=== PATIENT | female | born 1930 | race Caucasian/White ===

== ENCOUNTER 2016-10-20 13:39 | Inpatient (IN) | payer OTHER, BC ==
[~2016-10-20] VITALS: Ht 152.4 cm; Wt 65.9 kg
--- NOTE | ~2016-10-20 | EKG ---
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1930 Requested By: Leatha Gaitan Order Number: [id number] MD: Vinay Medina Measurements Intervals [place] Rate: 88 P: [place]: QRS: 75 QRSD: 73 T: 48 QT: 353 QTc: 427 Interpretive Statements Accelerated junctional rhythm Compared to ECG 10/13/2009 19:42:29 Accelerated junctional rhythm now present PSVT is no longer present Electronically Signed On 10-21-2016 8:49:53 CDT by Vinay Medina [email or web address] <ELECTRONICALLY SIGNED> By: Vinay Medina MD, [facility] 10/21/16 0849 1410 1410 Vinay Medina MD, [facility] /EPI
--- NOTE | ~2016-10-20 | 2DMMODE ---
[facility] [address] [place] [address] 2 D/M-MODE ECHOCARDIOGRAM Name: CHANO COMBS Room #: 463-P [facility] IN M.R.#: [id number] Admission: 10/20/16 Attend Phys: Justin Mccallum, Discharge: Date of : 30 Date of Service: 10/22/16 1404 Report #: [id number] THIS REPORT FOR: //name// APPROVED REPORT Study performed: 10/22/2016 12:38:34 EXAM: Comprehensive 2D, Doppler, and color-flow Echocardiogram Patient Location: Bedside Room #: 463 Status: routine Other Information Study Quality: Adequate Indications Atrial Fibrillation 2D Dimensions RVDd: 32.91 mm LVEF(%): 50.60 (>50%) IVSd: 11.01 (7-11mm) LVOT Diam: 18.29 (18-24mm) LVDd: 32.59 mm PWd: 11.23 (7-11mm) Ascending Ao: 29.56 (22-36mm) LVDs: 24.46 (25-40mm) Aortic Root: 28.02 mm IVC: 2.00 mm Yang's LVEF: 50.60 % Volumes Left Atrial Volume (Systole) Single Plane 4CH: 36.91 mL Single Plane 2CH: 71.81 mL LA ESV Index: 35.00 mL/m2 Aortic Valve AoV Peak Bruno.: 1.46 m/s AO Peak Gr.: 8.62 mmHg LVOT Max P.35 mmHg LVOT Max V: 1.15 m/s APRIL Vmax: 2.08 cm2 Mitral Valve E/A Ratio: 2.6 MV Decel. Time: 272.59 ms MV E Max Bruno.: 1.25 m/s MV A Bruno.: 0.49 m/s MV PHT: 79.05 ms IVRT: 55.36 ms [facility] [place] [address] 2 D/M-MODE ECHOCARDIOGRAM Name: CHANO COMBS Room #: 463-P [facility] IN M.R.#: [id number] Admission: 10/20/16 Attend Phys: Justin Mccallum, Discharge: Date of : 30 Date of Service: 10/22/16 1404 Report #: [id number] Pulmonary Valve PV Peak Bruno.: 1.21 m/s PV Peak Gr.: 5.83 mmHg Tricuspid Valve TR Peak Bruno.: 2.82 m/s RAP Estimate: 5.00 mmHg TR Peak Gr.: 31.79 mmHg PA Pressure: 37.00 mmHg Left Ventricle The left ventricle is normal size. There is normal LV segmental wall motion. There is normal left ventricular wall thickness. The left ventricular systolic function is normal. The left ventricular ejection fraction is within the normal range. LVEF is 55-60%. This study is not technically sufficient to allow evaluation of the LV diastolic function due to atrial fibrillation. Right Ventricle The right ventricle is normal size. The right ventricular systolic function is normal. Atria The left atrium size is normal. The right atrium size is normal. Aortic Valve The aortic valve is normal in structure. Mild aortic regurgitation. There is no aortic valvular stenosis. Mitral Valve The mitral valve is normal in structure. Mild mitral regurgitation. No evidence of mitral valve stenosis. Tricuspid Valve The tricuspid valve is normal in structure. There is trace to mild tricuspid regurgitation. The right atrial pressure is estimated at 5 mmHg. There is mild pulmonary hypertension with an estimated PAP of 37 mmHg. Pulmonic Valve The pulmonary valve is normal in structure. There is no pulmonic valvular regurgitation. Great Vessels The aortic root is normal in size. The ascending aorta is normal in size. IVC is normal in size and collapses >50% with [facility] [address] [place] [address] 2 D/M-MODE ECHOCARDIOGRAM Name: CHANO COMBS Room #: 463-P [facility] IN M.R.#: [id number] Admission: 10/20/16 Attend Phys: Justin Mccallum, Discharge: Date of : 30 Date of Service: 10/22/16 1404 Report #: [id number] inspiration. Pericardium There is no pericardial effusion. <Conclusion> The left ventricle is normal size. LVEF is 55-60%. The aortic valve is normal in structure. Mild aortic regurgitation. The mitral valve is normal in structure. Mild mitral regurgitation. The tricuspid valve is normal in structure. There is trace to mild tricuspid regurgitation. The right atrial pressure is estimated at 5 mmHg. There is mild pulmonary hypertension with an estimated PAP of 37 mmHg. The pulmonary valve is normal in structure. <ELECTRONICALLY SIGNED> By: Dipak Barton MD 10/22/16 1404 1404 1404 Dipak Barton MD /INF
--- NOTE | ~2016-10-20 | HC ---
[facility] [place] [address] CONSULTATION Name: CHANO COMBS Room #: 463-P ADM IN M.R.#: [id number] Admission: 10/20/16 Attend Phys: Justin Mccallum MD Discharge: Date of : 30 Report #: [id number] THIS REPORT FOR: //name// CC: Justin Claros DATE OF SERVICE: 10/24/2016 REASON FOR CONSULTATION: Lung mass on CT. IMPRESSION: 1. Irregular parenchymal infiltrates. 2. Anterior pleural based right lung lesion. 3. Bilateral effusions. 4. Small mediastinal nodes, largest precarinal node 13 x 8, subcarinal node 15 x 9. 5. Sepsis. 6. Healthcare-associated pneumonia. 7. . 8. Atrial fibrillation. 9. Hypertension. 10. Hyperlipidemia. PLAN: Chest x-ray was done showing fluctuating pleural effusions and infiltrates. Suggest continue current antibiotics, aerosol therapy. Could consider speech therapy with video swallow; however, discussed with daughter and does not feel they would wish a PEG at this time, but will ask primary to discuss further with them. Further therapy per Cardiology. We will continue current pulmonary toilet available as needed. HISTORY OF PRESENT ILLNESS: An 86-year-old female admitted with atrial fibrillation, cough, wheeze, some shortness of breath. PAST MEDICAL HISTORY: ALLERGIES: BENADRYL and IBUPROFEN. SOCIAL HISTORY: Negative tobacco or ETOH. FAMILY HISTORY: Noncontributory. SURGERIES: Include nasal cauterization, colonoscopy, carpal tunnel. REVIEW OF SYSTEMS: Include hypertension, hyperlipidemia, dementia, shingles, right leg pain, arthritis, cough, shortness of breath, leg pain. PHYSICAL EXAMINATION: [facility] [address] [place] [address] CONSULTATION Name: CHANO COMBS Room #: 463-P [facility] IN .R.#: [id number] Admission: 10/20/16 Attend Phys: Justin Mccallum MD Discharge: Date of : 30 Report #: [id number] VITAL SIGNS: Temperature 98.1, pulse 74, respirations 18, BP 134/51. EYES: Negative icterus. NECK: Negative JVD. LUNGS: Coarse bilateral. HEART: Irregular. ABDOMEN: Bowel sounds present. EXTREMITIES: Showed no cyanosis. Positive edema. Laboratory and X-ray were reviewed. By: [id number] Landry Granados MD /nt
--- NOTE | ~2016-10-20 | EKG ---
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1930 Requested By: Leatha Gaitan Order Number: [id number] MD: Vinay Medina Measurements Intervals [place] Rate: 195 P: [place]: QRS: 84 QRSD: 92 T: -73 QT: 233 QTc: 420 Interpretive Statements Supraventricular tachycardia Probable anterior infarct, old Repolarization abnormality, prob rate related Baseline wander in lead(s) I,V5 Compared to ECG 10/13/2009 19:42:29 Sinus rhythm has replaced PSVT ST and T wave abnormalities no longer present Electronically Signed On 10-21-2016 7:44:13 CDT by Vinay Medina [email or web address] <ELECTRONICALLY SIGNED> By: Vinay Medina MD, FAC 10/21/16 0744 1346 1346 Vinay Medina MD, FAC /EPI
[~2016-10-20 13:39] MED LIST: ADULT LOW DOSE81 MG PO; ALEVE220 MG PO; ASPIRIN325 PO; CITRACAL + BON1 EACH PO; CITRACAL PLUS1 EACH PO; CLONIDINE PO; DILTIAZEM ER180 M1 PO; FISHOIL PO; FOSAMAX 70 MG T70 M1 PO; HCTZ PO; MICARDIS40 MG PO; OCUVITE TABLET1 EAC1 PO; VITAMIN E400 UNIT PO; ZOCOR 20 MG TAB20 M1 PO
[2016-10-20 13:55] VITALS: BP 152/81
[2016-10-20 14:14] LABS: ABSOLUTE NEUTROPHILS 6.3 thou/uL (1.4-8.2); BASOPHILS 0.4 % (0.0-2.0); HEMATOCRIT 32.7 % (37.0-47.0); HEMOGLOBIN 11.3 gm/dL (12.0-15.0); LYMPHOCYTES 10.7 % (24.0-44.0); MCH 29.7 pg (26.0-34.0); MCHC 34.7 g/dL (28.0-37.0); MCV 85.6 fL (80.0-100.0); PLATELET COUNT 370 thou/uL (150-400); POLYS 79.9 % (36.0-66.0); RBC 3.81 mil/uL (4.20-5.00); RDW 15.4 % (10.5-14.5); WBC 7.9 thou/uL (4.0-11.0)
[2016-10-20 14:18] LABS: MANUAL DIFF NO
[2016-10-20 14:20] LABS: CALCIUM 8.9 mg/dL (8.5-10.1); POTASSIUM 4.1 mmol/L (3.5-5.1)
[2016-10-20 14:28] LABS: URINE BILIRUBIN NEGATIVE (Negative); URINE BLOOD TRACE (Negative); URINE GLUCOSE-RANDOM* NEGATIVE (Negative); URINE KETONES TRACE (Negative); URINE NITRITE NEGATIVE (Negative); URINE PROTEIN (DIPSTICK) 2+ (Negative); URINE UROBILINOGEN 0.2 E.U./dl (0.2-1.0)
[2016-10-20 14:31] LABS: URINE COLOR YELLOW
[2016-10-20 14:37] LABS: ABG SAMPLE TYPE ARTERIAL; BE(vivo) -0.6 mmol/L (-2 to +3); HCO3 22.6 mmol/L (22.0-26.0); LACTATE 2.73 mmol/L (0.5-2.0); O2(CT) 16.1 mL/dL (15.0-23.0); O2Hb 98.8 % (92.0-98.0); PCO2 32.3 mmHg (35.0-45.0); PO2 217.8 mmHg (80.0-100.0); Pressure Support 6 cm H20; STICK SITE R.RADIAL; pH 7.462 (7.360-7.450); sO2 99.5 % (92.0-98.0); tCO2 23.6 mmol/L (24.0-30.0)
[2016-10-20 14:54] LABS: BACTERIA 1-9 Few /HPF (None Seen); CASTS None Seen /LPF (None Seen); SQUAMOUS 0-3 Few /LPF (0-3); URINE RBC 3-10 Few /HPF (0-2); URINE WBC None Seen /HPF (0-5)
[2016-10-20 14:55] LABS: AMORPHOUS URATES Few /LPF (None Seen)
[2016-10-20 15:30] LABS: ALBUMIN 2.8 g/dL (3.4-5.0); DIRECT BILIRUBIN 0.2 mg/dL (<0.1-0.3); TOTAL BILIRUBIN 0.9 mg/dL (<0.1-1.0); TOTAL PROTEIN 6.9 g/dL (6.4-8.2)
[2016-10-20 16:48] VITALS: BP 126/50
[2016-10-20 17:20] VITALS: BP 128/76
[2016-10-20 21:57] VITALS: BP 105/40
[2016-10-21 00:22] VITALS: BP 164/43
[2016-10-21 03:55] VITALS: BP 139/59
[2016-10-21 05:45] LABS: HEMATOCRIT 25.3 % (37.0-47.0); MCH 29.8 pg (26.0-34.0); MCV 85.2 fL (80.0-100.0); RBC 2.97 mil/uL (4.20-5.00); RDW 15.9 % (10.5-14.5); WBC 7.6 thou/uL (4.0-11.0)
[2016-10-21 05:51] LABS: HEMOGLOBIN 8.8 gm/dL (12.0-15.0)
[2016-10-21 05:59] LABS: CALCIUM 7.7 mg/dL (8.5-10.1); POTASSIUM 4.1 mmol/L (3.5-5.1)
[2016-10-21 08:53] VITALS: BP 120/49
[2016-10-21 15:49] VITALS: BP 134/52
[2016-10-21 19:29] VITALS: BP 139/60
[2016-10-21 23:40] VITALS: BP 139/81
[2016-10-22 04:10] VITALS: BP 113/64
[2016-10-22 07:52] VITALS: BP 141/67
[2016-10-22 10:57] LABS: HEMATOCRIT 29.7 % (37.0-47.0); HEMOGLOBIN 10.2 gm/dL (12.0-15.0); MCHC 34.2 g/dL (28.0-37.0); MCV 87.6 fL (80.0-100.0); RBC 3.39 mil/uL (4.20-5.00)
[2016-10-22 11:00] LABS: CALCIUM 7.9 mg/dL (8.5-10.1); CREATININE 0.9 mg/dL (0.6-1.0); POTASSIUM 3.5 mmol/L (3.5-5.1)
[2016-10-22 11:36] VITALS: BP 121/61
[2016-10-22 15:15] VITALS: BP 119/54
[2016-10-22 21:10] VITALS: BP 127/41
[2016-10-23 04:00] VITALS: BP 146/56
[2016-10-23 06:31] LABS: HEMOGLOBIN 9.4 gm/dL (12.0-15.0); MCH 29.7 pg (26.0-34.0); MCHC 34.7 g/dL (28.0-37.0); MCV 85.7 fL (80.0-100.0); RBC 3.15 mil/uL (4.20-5.00); RDW 15.7 % (10.5-14.5); WBC 10.1 thou/uL (4.0-11.0)
[2016-10-23 06:41] LABS: CALCIUM 8.1 mg/dL (8.5-10.1); CREATININE 0.9 mg/dL (0.6-1.0); POTASSIUM 3.1 mmol/L (3.5-5.1)
[2016-10-23 07:41] VITALS: BP 112/52
[2016-10-23 11:22] LABS: MAGNESIUM 1.8 mg/dL (1.8-2.4)
[2016-10-23 11:44] VITALS: BP 129/62
[2016-10-23 16:16] VITALS: BP 127/51
[2016-10-23 19:47] VITALS: BP 142/57
[2016-10-24 03:19] VITALS: BP 134/52
[2016-10-24 05:40] LABS: HEMATOCRIT 27.5 % (37.0-47.0); HEMOGLOBIN 9.4 gm/dL (12.0-15.0); MCH 29.6 pg (26.0-34.0); MCHC 34.2 g/dL (28.0-37.0); MCV 86.4 fL (80.0-100.0); RBC 3.19 mil/uL (4.20-5.00); RDW 15.5 % (10.5-14.5)
[2016-10-24 05:55] LABS: CALCIUM 8.3 mg/dL (8.5-10.1); CREATININE 0.8 mg/dL (0.6-1.0); POTASSIUM 3.6 mmol/L (3.5-5.1)
[2016-10-24 07:31] VITALS: BP 142/63
[2016-10-24 11:29] VITALS: BP 113/53
[2016-10-24 15:50] VITALS: BP 137/63
[2016-10-24 19:40] VITALS: BP 134/51
[2016-10-25 04:23] VITALS: BP 146/49
[2016-10-25 06:14] LABS: HEMATOCRIT 26.2 % (37.0-47.0); MCH 29.6 pg (26.0-34.0); MCHC 34.2 g/dL (28.0-37.0); MCV 86.4 fL (80.0-100.0); PLATELET COUNT 440 thou/uL (150-400); RBC 3.04 mil/uL (4.20-5.00); RDW 15.9 % (10.5-14.5); WBC 11.8 thou/uL (4.0-11.0)
[2016-10-25 06:23] LABS: MANUAL DIFF YES
[2016-10-25 06:24] LABS: CALCIUM 8.6 mg/dL (8.5-10.1); MAGNESIUM 1.7 mg/dL (1.8-2.4); POTASSIUM 3.7 mmol/L (3.5-5.1)
[2016-10-25 07:13] VITALS: BP 152/57
[2016-10-25 08:07] LABS: ABSOLUTE NEUTROPHILS 8.3 thou/uL (1.4-8.2); ANISOCYTOSIS SLIGHT; HYPOCHROMASIA 1+; POIKILOCYTOSIS SLIGHT; TOTAL CELL COUNT 100
[2016-10-25 11:53] VITALS: BP 136/40
[2016-10-25 15:29] VITALS: BP 147/50
[2016-10-25 19:49] VITALS: BP 191/85
[2016-10-26 05:13] VITALS: BP 144/63
[2016-10-26 06:49] LABS: HEMATOCRIT 25.9 % (37.0-47.0); HEMOGLOBIN 8.9 gm/dL (12.0-15.0); MCH 29.7 pg (26.0-34.0); MCHC 34.5 g/dL (28.0-37.0); MCV 86.1 fL (80.0-100.0); PLATELET COUNT 460 thou/uL (150-400); RDW 15.8 % (10.5-14.5); WBC 10.7 thou/uL (4.0-11.0)
[2016-10-26 06:50] LABS: MANUAL DIFF YES
[2016-10-26 07:13] LABS: CALCIUM 8.5 mg/dL (8.5-10.1); CREATININE 0.8 mg/dL (0.6-1.0); POTASSIUM 3.6 mmol/L (3.5-5.1)
[2016-10-26 08:46] VITALS: BP 133/63
[2016-10-26 10:50] LABS: ABSOLUTE NEUTROPHILS 6.5 thou/uL (1.4-8.2); ANISOCYTOSIS 1+; METAMYELOCYTES 1 %; TOTAL CELL COUNT 100
[2016-10-26 16:23] VITALS: BP 131/49
[2016-10-26 19:24] VITALS: BP 132/48
[2016-10-27 04:10] VITALS: BP 125/55
[2016-10-27 09:05] VITALS: BP 131/43
[2016-10-27 11:47] VITALS: BP 124/40
[2016-10-27] MEDS ORDERED: LEVAQUIN 500 M500 M2 PO (12:55)
[2016-10-27] MEDS ORDERED: PACERONE 200 M200 M1 PO (12:56)
== END 2016-10-27 16:21 | DRG 871 ==
LOC: ER 13:39 → 4W 15:01 → EROBS 15:01 → 4W 16:34
PROVIDERS: Emergency Medicine; Family Medicine; Internal Medicine; Registered Nurse
PROC: 5A09357 Assistance with Respiratory Ventilation, Less than 24 Consecutive Hours, Continuous Positive Airway Pressure (ICD-10-PCS; principal; 2016-10-20)
DX: A41.9 Sepsis, unspecified organism (principal); J18.9 Pneumonia, unspecified organism; J96.90 Respiratory failure, unspecified, unspecified whether with hypoxia or hypercapnia; E87.1 Hypo-osmolality and hyponatremia; I10 Essential (primary) hypertension; E78.5 Hyperlipidemia, unspecified; E78.00 Pure hypercholesterolemia, unspecified; M19.90 Unspecified osteoarthritis, unspecified site; I48.91 Unspecified atrial fibrillation; Z66 Do not resuscitate; T50.2X5A Adverse effect of carbonic-anhydrase inhibitors, benzothiadiazides and other diuretics, initial encounter; G89.29 Other chronic pain; R53.81 Other malaise; Y92.89 Other specified places as the place of occurrence of the external cause; Z88.8 Allergy status to other drugs, medicaments and biological substances; Z79.899 Other long term (current) drug therapy
CPT/HCPCS: 10045

== ENCOUNTER → 2019-06-01 | Outpatient (CLI) | payer OTHER, BC ==
[~2019-06-01] MED LIST changes: +LEVAQUIN 500 M500 M2 PO; +PACERONE 200 M200 M1 PO
== END ==
LOC: SJCVC 14:06
DX: I48.0 Paroxysmal atrial fibrillation (principal); I10 Essential (primary) hypertension; E78.5 Hyperlipidemia, unspecified; Z79.899 Other long term (current) drug therapy